=== PATIENT | male | born 1990 | race Caucasian/White ===

== ENCOUNTER 2019-01-21 03:45 | Emergency (ER) | payer SELFPAY ==
[~2019-01-21] VITALS: Ht 175.3 cm; Wt 73.5 kg
[2019-01-21 03:51] VITALS: BP 130/79
[2019-01-21] MEDS: IBUPROFEN 600 MG TAB PO ONE (05:11)
[2019-01-21 06:45] VITALS: BP 130/79
== END 2019-01-21 06:45 | disposition home or self-care (01) ==
LOC: MED 03:45
DX: M25.572 Pain in left ankle and joints of left foot (principal)
CPT/HCPCS: 73610; 99283; Q0092